=== PATIENT | female | born 1995 | race Caucasian/White ===

== ENCOUNTER 2017-04-02 17:00 | Inpatient (IN) | payer MEDICAID ==
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
--- NOTE | ~2017-04-02 | HP ---
Unit #: [id number] #: [id number] Patient: RADHA TRIMBLE [id number] [place] [address] [id number] MR#: [id number] NAME: RADHA TRIMBLE ROOM: [facility] Age: 22 Sex: F Admission Date: 04/02/2017 : 1995 Attending Physician: Adolfo Jordan M.D. Admitting Physician: Adolfo Jordan M.D. Primary Care Physician: Generic Doctor Not In System HISTORY AND PHYSICAL HISTORY OF PRESENT ILLNESS Radha is a 22 year old admitted to [address] [place] [address] because of her drug use. She refuses to answer any questions and exam is very limited. PAST MEDICAL HISTORY History of illicit substance abuse to include methamphetamine. PAST SURGICAL HISTORY Nothing known. ALLERGIES No known drug allergies. SOCIAL HISTORY Smokes 1 pack per day. Drinks alcohol rarely. Admits to illicit substance abuse to include methamphetamine. FAMILY HISTORY Medically noncontributory. REVIEW OF SYSTEMS She refuses to answer any questions. CURRENT MEDICATIONS 1. Risperdal 0.25 mg b.i.d. 2. Milk of Magnesia p.r.n. 3. Maalox p.r.n. 4. Tylenol p.r.n. PHYSICAL EXAMINATION GENERAL: Alert, well-nourished, in no apparent distress. VITAL SIGNS: Blood pressure 110/74, heart rate 86, respirations 16, temperature 98.6. SKIN: Patient refuses. HEENT: Patient refuses. NECK: Patient refuses. HEART: Rate and rhythm is regular. LUNGS: Patient refuses. ABDOMEN: Patient refuses. : Not done. EXTREMITIES: Patient refuses. NEUROLOGICAL: Patient refuses. Unit #: [id number] #: [id number] Patient: RADHA TRIMBLE IMPRESSION Psychiatric admission. RECOMMENDATIONS PSYCHIATRIC: Per psychiatrist. MEDICAL: See no contraindications to participate in facility's activities. MEDICAL PROGNOSIS Good. MEDICAL CONDITION Stable. Dictated by... Perlita Carrizales P.A.-C. for Daphne Van/georgina TD: 04/03/2017 20:36 JOB #: [id number] HISTORY AND PHYSICAL Page 1 of 1 X Perlita Carrizales HISTORY AND PHYSICAL
--- NOTE | ~2017-04-02 | DS ---
Unit #: [id number] #: [id number] Patient: REJI TRIMBLE [id number] [facility] [address] [place] [address] [id number] MR#: [id number] NAME: REJI TRIMBLE ROOM: [facility] Age: 22 Sex: F Admission Date: 04/02/2017 : 1995 Discharge Date: 04/04/2017 Attending Physician: Adolfo Jordan M.D. Primary Care Physician: Generic Doctor Not In System DISCHARGE SUMMARY REASON FOR ADMISSION The patient is a 22-year-old white female, admitted to the [address] [place] [address] complaining of abuse of methamphetamine and homicidal thoughts towards her parents. HOSPITAL COURSE The patient was admitted to the hospital per 72-hour hold after she had made homicidal threats towards her parents. When seen by this physician on the afternoon of 04/03/2017, the patient was very angry at her psychiatric hospitalization demanding why she had been kept in the hospital was explained that the homicidal threats she had made were the cause for her 72-hour hold. The patient denied suicidal ideation at that time, and was told that if she behaved appropriately, she would be able to leave the hospital the following day, she in fact did so and as of 04/04/2017, she was discharged, not at that point meeting criteria for involuntary hospitalization. During her brief stay in the hospital, the patient was restarted on Risperdal 0.25 mg b.i.d. FINAL DIAGNOSES Methamphetamine use disorder; opioid use disorder; hallucinogen use disorder; alcohol use disorder; mood disorder, unspecified; borderline personality disorder. DISPOSITION ON DISCHARGE The patient is discharged on the following medications: Risperdal 0.25 mg b.i.d. for mood stabilization. DISCHARGE INSTRUCTIONS No dietary or physical restrictions were placed upon the patient at the time of discharge. FOLLOWUP Followup will take place through the auspices of community mental health resources. PROGNOSIS The patient's prognosis is considered fair. Dictated by... Adolfo Jordan M.D. TRAN/mishell Unit #: [id number] #: [id number] Patient: REJI TRIMBLE TD: 04/04/2017 15:21 JOB #: [id number] DISCHARGE SUMMARY Page 1 of 1 X Adolfo Jordan MD DISCHARGE SUMMARY
== END 2017-04-04 15:10 | disposition home or self-care (01) | DRG 897 ==
LOC: P1S 20:26
DX: F15.20 Other stimulant dependence, uncomplicated (principal); F11.20 Opioid dependence, uncomplicated; F16.20 Hallucinogen dependence, uncomplicated; F39 Unspecified mood [affective] disorder; F60.3 Borderline personality disorder; F17.210 Nicotine dependence, cigarettes, uncomplicated; F10.20 Alcohol dependence, uncomplicated
CPT/HCPCS: J3486